=== PATIENT | female | born 1990 | race Caucasian/White ===

== ENCOUNTER → 2018-07-19 | Outpatient (CLI) | payer BC ==
[~2018-07-19] MED LIST: DEPO-PROVE400 MG/VIA IM; MOTRIN 600600 MG/TAB PO; NATURAL IRON65 MG PO; PERCOCET 325 MG1 TA2 PO; SYNTHROID0.137 MG
== END ==
LOC: COL.RAD 13:05
DX: C73 Malignant neoplasm of thyroid gland (principal); Z90.89 Acquired absence of other organs

== ENCOUNTER 2022-08-02 10:46 | Emergency (ER) | payer MEDICAID ==
[~2022-08-02] VITALS: Ht 172.7 cm; Wt 53.6 kg
[2022-08-02 10:57] VITALS: TEMP 98.6
[2022-08-02 11:44] LABS: COLLECTION METHOD CLEAN CATCH
[2022-08-02 11:50] LABS: HEMATOCRIT 50.7 % (37.0-47.0); MEAN CELL VOLUME 86 fl (80.0-100.0); MEAN CORPUSCULAR HEMOGLOBIN 29 pg (27-31); MEAN CORPUSCULAR HGB CONC 34 g/dl (33.0-37.0); MEAN PLATELET VOLUME 8.7 fl (7.4-10.4); PLATELET COUNT 277 K/mm3 (130-400); RED BLOOD COUNT 5.87 M/mm3 (4.10-5.30); REDCELL DISTRIBUTION WIDTH-CV 11.8 % (11.5-14.5)
[2022-08-02 12:10] LABS: BAND 2 % (0-10); EOSINOPHIL 1 % (0-4); LYMPHOCYTE 7 % (20.0-51.0); NEUTROPHILS 84 % (42.0-75.2)
[2022-08-02 12:11] LABS: PLATELET ESTIMATE NORMAL (NORMAL)
[2022-08-02 12:13] LABS: MUCOUS Present (NOT PRESENT); URINE BACTERIA Rare /hpf (NONE SEEN)
[2022-08-02 12:14] LABS: URINE APPEARANCE Hazy (CLEAR/HAZY); URINE COLOR Yellow (YELLOW); URINE GLUCOSE Negative (NEGATIVE); URINE PROTEIN(semi-quant) 1+ (NEGATIVE)
[2022-08-02 12:15] LABS: ALBUMIN 3.9 gm/dL (3.5-5.0); BILIRUBIN,TOTAL 0.8 mg/dL (0.2-1.2); CALCIUM 9.3 mg/dL (8.4-10.2); CREATININE, serum 0.93 mg/dL (0.57-1.11); POTASSIUM 3.8 mmol/L (3.5-4.5); TOTAL PROTEIN 7.7 gm/dL (6.2-8.1); URINE BLOOD TRACE-LYSED (NEGATIVE); URINE KETONE 4+ (NEGATIVE); URINE NITRATE Negative (NEGATIVE); URINE UROBILINOGEN 0.2 E.U/dL (0.2-1.0)
[2022-08-02] MEDS ORDERED: FLAGYL500 MG PO (14:07)
[2022-08-02] MEDS ORDERED: CIPRO 500MG TA500 MG PO (14:07)
[2022-08-02 14:31] VITALS: BP 118/94; PULSE 101
[2022-08-06] MEDS ORDERED: EUTHYROX175 MCG PO (12:39)
[2022-08-06] MEDS ORDERED: MULTIVITAMIN FO1 CAP PO (12:40)
[2022-08-06] MEDS ORDERED: ALDACTONE50 MG PO (12:40)
[2022-08-06] MEDS ORDERED: ADDERALL XR25 MG PO (12:40)
[2022-08-06] MEDS ORDERED: BUSPAR10 MG PO (12:42)
[2022-08-06] MEDS ORDERED: ZOLOFT 50MG50 MG PO (12:42)
== END 2022-08-02 14:45 | disposition home or self-care (01) ==
LOC: COL.ER 10:46
PROVIDERS: Emergency Medicine
DX: K52.9 Noninfective gastroenteritis and colitis, unspecified (principal); E87.1 Hypo-osmolality and hyponatremia; R00.0 Tachycardia, unspecified; Z32.02 Encounter for pregnancy test, result negative
CPT/HCPCS: J2270; J7030; Q9967